=== PATIENT | female | born 1955 | race Caucasian/White ===

== ENCOUNTER 2018-10-05 14:05 | Emergency (ER) | payer OTHER ==
[~2018-10-05] VITALS: Ht 144.8 cm; Wt 75.0 kg
[~2018-10-05 14:05] MED LIST: ACET500C5 PO; CETI10CA PO; HC1C30 TOP; HYDR-4011 PO
[2018-10-05 14:22] VITALS: Ht 144.8 cm; Wt 75.0 kg
[2018-10-05] MEDS ORDERED: SOD CHLORIDE 0.9% 1,000 ML IV STA (15:31)
[2018-10-05] MEDS ORDERED: ONDANSETRON 4 MG INJ IV STA (15:31)
[2018-10-05] MEDS ORDERED: KETOROLAC 15 MG INJ IV STA (15:31)
[2018-10-05] MEDS ORDERED: INSULIN LISPRO 100 UNIT/ML VIAL SC ONE (16:00)
[2018-10-05] MEDS ORDERED: ACCU-CHEK XX ONE (16:00)
--- NOTE | 2018-10-05 16:13 | ERD ---
ER Documentation Chief Complaint Chief Complaint DIAPHORECTIC, ACCUCHECK 353, + WEAKNESS, ONLY TAKES METFORMIN HPI 63-year-old diabetic woman presents with 2 days of generalized weakness and hyperglycemia, she denies fevers or chills, no abdominal pain, no chest pain or shortness of breath, no loss of consciousness. ROS All systems reviewed and are negative except as per history of present illness. Medications Home Meds Active Scripts Ondansetron Hcl* (Zofran*) 4 Mg Tablet, 4 MG PO Q8H PRN for NAUSEA AND/OR VOMITING, #30 TAB Prov:ARNOLD SNOW MD 10/05/18 Reported Medications Glipizide* (Glipizide*) 10 Mg Tablet, 10 MG PO AC BREAKFAST DINNER, TAB 10/05/18 Omeprazole* (Omeprazole*) 20 Mg Capsule.dr, 20 MG PO DAILY, #30 CAP 10/05/18 Metformin Hcl* (Metformin Hcl*) 1,000 Mg Tablet, 1000 MG PO WITH BREAKFAST DINNE, #60 TAB 10/05/18 Benazepril Hcl* (Benazepril Hcl*) 20 Mg Tablet, 20 MG PO DAILY, #30 TAB 10/05/18 Levothyroxine Sodium* (Levothyroxine Sodium*) 50 Mcg Tablet, 50 MCG PO BEFORE BREAKFAST, #30 TAB 10/05/18 Acetaminophen* (Acetaminophen*) 500 MG Extra Strength Tablet, 500 MG PO Q4H PRN for PAIN AND OR ELEVATED TEMP, TAB 10/05/18 Discontinued Scripts Hydrocodone/Acetaminophen ([place] 5-325 Tablet) 1 Each Tablet, 1 TAB PO Q6H PRN for PAIN, #10 TAB Prov:RANJITH JOHNSON PA-C 05/21/18 Hydrocortisone* Topical (Hydrocortisone* Topical) 1%-28.35 Gm Cream..g., 1 APPLIC TOP Q6 PRN for ITCHING, #1 TUB Prov:SATISH SILVERMAN PA-C 03/05/16 Cetirizine Hcl* (Zyrtec*) 10 Mg Capsule, 10 MG PO DAILY, #10 TAB.CHEW Prov:SATISH SILVERMAN PA-C 03/05/16 Acetaminophen* (Tylophen*) 500 Mg Capsule, 1 CAP PO Q6H PRN for PAIN AND OR ELEVATED TEMP, #20 CAP Prov:SATISH SILVERMAN PA-C 03/05/16 Allergies Allergies: Coded Allergies: Penicillins (Verified Allergy, Unknown, 10/05/18) PMhx/Soc Hypothyroidism, obesity, diabetes mellitus, gastritis History of Surgery: Yes (hernia, tubal ligation) Anesthesia Reaction: No Hx Neurological Disorder: No Hx Respiratory Disorders: No Hx Cardiac Disorders: Yes (hypertension) Hx Psychiatric Problems: No Hx Miscellaneous Medical Probl: No Hx Alcohol Use: No Hx Substance Use: No Hx Tobacco Use: No Smoking Status: Never smoker Physical Exam Vitals Vital Signs Date Temp Pulse Resp B/P (MAP) Pulse Ox O2 O2 Flow FiO2 Time Delivery Rate 10/05/18 99.0 74 19 129/59 94 Room Air 19:04 (82) 10/05/18 80 19 95/68 (77) 94 Room Air 18:15 10/05/18 99.0 99 20 172/84 97 14:22 (113) Physical Exam GENERAL: Well-developed, well-nourished, well-hydrated, in no apparent distress, looks nontoxic in appearance HEENT: Moist mucous membranes, pink conjunctiva, no cervical spine tenderness or step-off deformities, no goiter, no jaundice or icterus, extraocular movements intact without pain. No submandibular induration, and no pharyngeal erythema NEURO: Alert and oriented 3, cranial nerves II through XII intact bilaterally, pupils equal round reactive to light, no focal deficits or facial asymmetry, sensation intact distally Strength 5/5 in upper and lower extremities bilaterally CARDIAC: Regular rate and rhythm, no murmurs rubs or gallops LUNGS: Clear bilaterally no wheezing crackles or stridor ABDOMEN: Soft nontender, no guarding, no rigidity, no rebound, no psoas sign no obturator sign. Normoactive bowel sounds SKIN: Warm and dry to touch, no abrasions, contusions, or hematomas, no lacerations, no ecchymosis, no target lesions, and without ulcers EXTREMITIES: No clubbing cyanosis or edema, calves are bilaterally symmetrical, no Homans sign, no popliteal cord sign. Distal pulses equal and bilateral PSYCH: Normal affect without agitation or irritability Result Diagram: 10/05/18 1542 10/05/18 1542 Results 24 hrs Laboratory Tests Test 10/05/18 14:21 10/05/18 15:42 10/05/18 15:54 10/05/18 18:07 Bedside Glucose 353 mg/dL 314 mg/dL White Blood Count 15.1 10^3/ul Red Blood Count 5.22 10^6/ul Hemoglobin 13.0 g/dl Hematocrit 40.8 % Mean Corpuscular 78.2 fl Volume Mean Corpuscular 24.9 pg Hemoglobin Mean Corpuscular 31.9 g/dl Hemoglobin Concen t Red Cell 16.3 % Distribution Width Platelet Count 397 10^3/UL Mean Platelet 9.7 fl Volume Immature 1.100 % Granulocytes % Neutrophils % % Segmented 46 % Neutrophils % (Manual) Lymphocytes % % Lymphocytes % 26 % (Manual) Reactive 17 % Lymphocytes % (Manual) Monocytes % % Monocytes % 9 % (Manual) Eosinophils % % Eosinophils % 2 % (Manual) Basophils % % Nucleated Red 0.0 /100WBC Blood Cells % Immature 0.170 10^3/ul Granulocytes # Neutrophils # 10^3/ul Lymphocytes 3.9 10^3/ul (Manual) Lymphocytes # 10^3/ul Reactive 2.5 10^3/ul Lymphocytes # Monocytes # 10^3/ul Monocytes # 1.3 10^3/ul (Manual) Eosinophils # 10^3/ul Basophils # 10^3/ul Nucleated Red 10^3/ul Blood Cells # Platelet Estimate NORMAL Anisocytosis 1+ Microcytosis 1+ Sodium Level 131 mmol/L Potassium Level 5.3 mmol/L Chloride Level 96 mmol/L Carbon Dioxide 24 mmol/L Level Anion Gap 11 Blood Urea 15 mg/dl Nitrogen Creatinine 0.65 mg/dl Est Glomerular > 60 mL/min Filtrat Rate mL/min Glucose Level 370 mg/dl Calcium Level 10.0 mg/dl Total Bilirubin 0.3 mg/dl Direct Bilirubin 0.00 mg/dl Indirect 0.3 mg/dl Bilirubin Aspartate Amino 22 IU/L Transf (AST/SGOT) Alanine 21 IU/L Aminotransferase (ALT/SGPT) Alkaline 140 IU/L Phosphatase Troponin I < 0.012 ng/ml Total Protein 6.9 g/dl Albumin 4.2 g/dl Globulin 2.70 g/dl Albumin/Globulin 1.55 Ratio Lipase 89 U/L Urine Color YELLOW Urine Clarity CLEAR Urine pH 6.0 Urine Specific 1.021 [place] Urine Ketones NEGATIVE mg/dL Urine Nitrite NEGATIVE mg/dL Urine Bilirubin NEGATIVE mg/dL Urine NEGATIVE mg/dL Urobilinogen Urine Leukocyte NEGATIVE Reinier/ul Esterase Urine Hemoglobin NEGATIVE mg/dL Urine Glucose 3+ mg/dL Urine Total NEGATIVE mg/dl Protein Test 10/05/18 18:58 Bedside Glucose 107 mg/dL Current Medications Medications Dose Sig/Minal Start Time Status Last (Trade) Ordered Route PRN Stop Time Admin Dose Reason Admin Sodium 1,000 ml @ Q1H STAT 10/05/18 DC 10/05/18 Chloride 1,000 mls/hr IV 15:31 15:59 10/05/18 16:30 Ondansetron 4 mg ONCE STAT 10/05/18 DC 10/05/18 HCl (Zofran IV 15:31 15:59 Inj) 10/05/18 15:33 Ketorolac 15 mg ONCE STAT 10/05/18 DC 10/05/18 Tromethamine IV 15:31 16:00 (Toradol) 10/05/18 15:33 Insulin 10 unit ONCE ONCE 10/05/18 DC 10/05/18 Human SC 16:00 16:01 Lispro 10/05/18 16:01 (Humalog) Diagnostic 1 ea 2 HRS AFTER 10/05/18 DC 10/05/18 Test (Pha) HUMALOG ONCE 16:00 16:32 (Accu-Chek) XX 10/05/18 16:01 Procedures/MDM IV line was established patient was placed on environmental monitoring specialist rhythm strip revealed a sinus rhythm at about 80 bpm with upright P and T waves. Patient was afebrile EKG performed, read by me revealed a normal sinus rhythm 84 bpm, normal axis, right bundle branch block QRS duration 122 ms, no concerning ST elevations or depressions noted Patient was hyperglycemic I administered 1 L normal saline IV and lispro insulin 10 units subcutaneous injection. Patient also received Toradol 15 mg IV and Zofran 4 mg IV Blood sugar fell, electrolytes revealed mild leukocytosis of 15, electrolytes reveal mild dehydration and mild hyperkalemia 5.3, urinalysis negative for infection, liver function test normal. Patient has no signs or symptoms of DKA. Differential diagnoses considered, included but not limited to acute coronary syndrome, pulmonary embolism, aortic dissection, abdominal aortic aneurysm, sepsis, stroke, meningitis, encephalitis, pneumonia, appendicitis, cholecystitis, bowel obstruction, pyelonephritis, nephrolithiasis, cystitis, as well as metabolic, hematologic, and electrolyte abnormalities. As well as abscess, cellulitis, fractures, and dislocations. Patient feels much better at this time, and vital signs are normal, symptoms have improved. I did give strict instructions to return to the ED if symptoms continue or worsen, patient will otherwise follow-up with primary care physician. Patient understood instructions and agreed to plan. Disclaimer: Inadvertent spelling and grammatical errors are likely due to EHR/dictation software use and do not reflect on the overall quality of patient care. Also, please note that the electronic time recorded on this note does not necessarily reflect the actual time of the patient encounter. Departure Diagnosis: Primary Impression: Acute weakness Additional Impressions: Acute hyperglycemia Dehydration HTN (hypertension) Hypertension type: essential hypertension Qualified Codes: I10 - Essential (primary) hypertension Condition: Good ARNOLD SNOW MD Oct 05, 2018 16:13
[2018-10-05] MEDS ORDERED: BENA20TA4 PO (16:32)
[2018-10-05] MEDS ORDERED: ACET-141 PO (16:32)
[2018-10-05] MEDS ORDERED: LEVO50TA7 PO (16:32)
[2018-10-05] MEDS ORDERED: METF100010 PO (16:33)
[2018-10-05] MEDS ORDERED: GLIP10TA14 PO (16:33)
[2018-10-05] MEDS ORDERED: OMEP20CA16 PO (16:33)
[2018-10-05] MEDS ORDERED: ONDA4TAB8 PO (18:28)
[2018-10-05 19:04] VITALS: BP 129/59; PULSE 74; RESP 19
== END 2018-10-05 19:06 | disposition home or self-care (01) ==
LOC: E/R 14:05
DX: E11.65 Type 2 diabetes mellitus with hyperglycemia (principal); E86.0 Dehydration; I10 Essential (primary) hypertension; E03.9 Hypothyroidism, unspecified; E66.9 Obesity, unspecified; Z68.35 Body mass index [BMI] 35.0-35.9, adult; Z79.84 Long term (current) use of oral hypoglycemic drugs
CPT/HCPCS: 71045; 80053; 81003; 82962; 83690; 84484; 85025; 87086; 93005; 96372; 96374; 96375; J1815; J1885; J2405; J7030; Z7502

== ENCOUNTER 2018-10-08 13:52 | Emergency (ER) | payer OTHER ==
[~2018-10-08] VITALS: Ht 154.9 cm; Wt 75.9 kg
[~2018-10-08 13:52] MED LIST changes: +ACET-141 PO; -ACET500C5 PO; +BENA20TA4 PO; -CETI10CA PO; +GLIP10TA14 PO; -HC1C30 TOP; -HYDR-4011 PO; +LEVO50TA7 PO; +METF100010 PO; +OMEP20CA16 PO; +ONDA4TAB8 PO
[2018-10-08 14:04] VITALS: BP 172/72; PULSE 98; RESP 24; Ht 154.9 cm; Wt 75.9 kg
[2018-10-08] MEDS ORDERED: ACETAMINOPHEN 500 MG TAB PO STA (14:39)
[2018-10-08] MEDS ORDERED: ACET500C5 PO (16:46)
--- NOTE | 2018-10-08 22:10 | ERD ---
ER Documentation Chief Complaint Chief Complaint left elbow, bacl and head pain due to fall ; no ko HPI Patient is a 63-year-old female with past medical history of hypertension, DM type II, presents to the ER with her niece for concerns of left elbow pain, back pain and posterior head pain after a fall injury prior to arrival. Patient states she was attempting to sit down in her seated walker when it flipped and she fell backwards. Patient also landed on her bilateral elbows. Patient states she did hit the posterior aspect of her head on the floor. Patient has a brasions on her bilateral elbows. Patient denies any loss of consciousness, vomiting, excessive sleepiness. Patient also reports lower back pain. She denies any saddle anesthesia, urinary incontinence, stool incontinence or hematuria. Patient denies any chest pain or shortness of breath. Patient denies any dizziness or lightheadedness prior to fall injury. Patient states she only fell because the walker fell below her. ROS All systems reviewed and are negative except as per history of present illness. Medications Home Meds Active Scripts Acetaminophen* (Tylophen*) 500 Mg Capsule, 1 CAP PO Q6H PRN for PAIN AND OR ELEVATED TEMP, #20 CAP Prov:CARLA LIANG PA-C 10/08/18 Ondansetron Hcl* (Zofran*) 4 Mg Tablet, 4 MG PO Q8H PRN for NAUSEA AND/OR VOMITING, #30 TAB Prov:ARNOLD SNOW MD 10/05/18 Reported Medications Glipizide* (Glipizide*) 10 Mg Tablet, 10 MG PO AC BREAKFAST DINNER, TAB 10/05/18 Omeprazole* (Omeprazole*) 20 Mg Capsule.dr, 20 MG PO DAILY, #30 CAP 10/05/18 Metformin Hcl* (Metformin Hcl*) 1,000 Mg Tablet, 1000 MG PO WITH BREAKFAST DINNE, #60 TAB 10/05/18 Benazepril Hcl* (Benazepril Hcl*) 20 Mg Tablet, 20 MG PO DAILY, #30 TAB 10/05/18 Levothyroxine Sodium* (Levothyroxine Sodium*) 50 Mcg Tablet, 50 MCG PO BEFORE BREAKFAST, #30 TAB 10/05/18 Acetaminophen* (Acetaminophen*) 500 MG Extra Strength Tablet, 500 MG PO Q4H PRN for PAIN AND OR ELEVATED TEMP, TAB 10/05/18 Discontinued Scripts Hydrocodone/Acetaminophen ([place] 5-325 Tablet) 1 Each Tablet, 1 TAB PO Q6H PRN for PAIN, #10 TAB Prov:RANJITH JOHNSON MARIAMA 05/21/18 Hydrocortisone* Topical (Hydrocortisone* Topical) 1%-28.35 Gm Cream..g., 1 APPLIC TOP Q6 PRN for ITCHING, #1 TUB Prov:SATISH SILVERMAN PA-C 03/05/16 Cetirizine Hcl* (Zyrtec*) 10 Mg Capsule, 10 MG PO DAILY, #10 TAB.CHEW Prov:SATISH SILVERMAN PA-C 03/05/16 Acetaminophen* (Tylophen*) 500 Mg Capsule, 1 CAP PO Q6H PRN for PAIN AND OR ELEVATED TEMP, #20 CAP Prov:SATISH SILVERMAN PA-C 03/05/16 Allergies Allergies: Coded Allergies: Penicillins (Verified Allergy, Unknown, 10/05/18) PMhx/Soc History of Surgery: Yes (hernia, tubal ligation) Anesthesia Reaction: No Hx Neurological Disorder: No Hx Respiratory Disorders: No Hx Cardiac Disorders: Yes (hypertension) Hx Psychiatric Problems: No Hx Miscellaneous Medical Probl: No Hx Alcohol Use: No Hx Substance Use: No Hx Tobacco Use: No Smoking Status: Never smoker FmHx Family History: No diabetes Physical Exam Vitals Vital Signs Date Temp Pulse Resp B/P (MAP) Pulse Ox O2 O2 Flow FiO2 Time Delivery Rate 10/08/18 97.9 98 24 172/72 95 14:04 (105) Physical Exam GENERAL: Well-developed, well-nourished female. Appears in no acute distress. HEAD: Normocephalic. No deformities or ecchymosis. Mild swelling noted to the posterior occipital scalp. EYE: Pupils equal, round, and reactive to light. EOMs intact. No conjunctival erythema. No eye discharge. No periorbital ecchymosis noted bilaterally. ENT: External ear without any masses or tenderness. Auditory canals clear bilaterally. TM visualized bilaterally, non-erythematous, non-bulging. No hemotympanum noted bilaterally. No mastoid ecchymosis or swelling noted bilaterally. Nasal mucosa pink with no discharge. Oropharynx is pink without any tonsillar erythema or exudates. No uvula deviation. No kissing tonsils. NECK: Supple. No meningismus. Normal ROM of the neck. No cervical midline tenderness. LUNG: Clear to auscultation bilaterally. No rhonchi, wheezing, rales or coarse breath sounds. HEART: Regular rate and rhythm. No murmurs, rubs or gallops. ABDOMEN: Soft, nontender, and nondistended. Positive bowel sounds in all four quadrants. No rebound tenderness, no guarding. (-) McBurney's point tenderness. No CVA tenderness. BACK: No midline tenderness. Tender to palpation of bilateral paraspinal muscles. EXTREMITIES: Equal pulses bilaterally. No peripheral clubbing, cyanosis or edema. No unilateral leg swelling. Decreased range of motion of bilateral elbow secondary to pain however patient is able to extend and flex at both elbows. Normal pulses bilaterally. NEUROLOGIC: Alert and oriented to person, place and time. Moving all four extremities. 5/5 strength in all extremities. Normal speech. Steady gait. SKIN: Superficial abrasions noted to bilateral elbows. Results 24 hrs Current Medications Medications Dose Sig/Minal Start Time Status Last (Trade) Ordered Route PRN Stop Time Admin Dose Reason Admin 500 mg ONCE STAT 10/08/18 DC 10/08/18 Acetaminophen PO 14:39 14:47 (Tylenol 10/08/18 14:41 Tab) Procedures/MDM MEDICAL DECISION MAKING: Patient is a 63-year-old female who presents the ER for concerns of posterior head pain, neck pain, lower back pain and bilateral elbow pain after fall injury prior to arrival. Patient was attempting to sit down in her walker when her walker fell backwards and patient landed on her bilateral elbows. Patient does report hitting her head. Patient denies any loss of consciousness. Vital signs were reviewed. Patient is afebrile. Patient was not hypoxic. Patient was hemodynamically stable. CT imaging of the brain was obtained and was negative for acute intracranial hemorrhage or acute territorial infarct. Age-related atrophy and minimal vessel ischemic changes were noted. Mild posterior scalp swelling was noted. CT cervical spine showed neck no acute fracture or dislocation. Numerous chronic changes were noted. See formal report. Bilateral elbow series were negative for fracture dislocation. Lumbar spine was negative for acute fracture dislocation. Osteopenia was noted. Degenerative disc changes were noted. See formal report.. At this time, patient's presentation is most consistent with posterior head pain, scalp hematoma, bilateral elbow pain, bilateral elbow abrasions and back pain after fall injury. Low suspicion for intracranial hemorrhage, skull fracture, cervical spine injury, cervical spine fracture, cervical spine dislocation, cauda equina syndrome, spinal fracture, elbow fracture or dislocation. PRESCRIPTION: Tylenol DISCHARGE: At this time, patient is stable for discharge and outpatient management. I have instructed the patient to follow-up with his/her primary care physician in 1-2 days. I have discussed with the patient the possibility of needing to see a specialist for further workup and imaging studies if symptoms persist. I have instructed the patient to promptly return to the ER for any new or worsening symptoms including increased pain, fever, nausea, vomiting, weakness or LOC. The patient and/or family expressed understanding of and agreement with this plan. All questions were answered. Home care instructions were provided. Patients blood pressure was elevated (>120/80) but appears stable without evidence of hypertensive emergency, hypertensive urgency or end-organ failure. I had discussion with the patient about the risks of hypertension. I have advised the patient to follow up with his/her primary care physician for outpatient monitoring and treatment for hypertension in 2-3 days. I have instructed the patient to return to the ER for any new or worsening symptoms including chest pain, shortness of breath, headache, blurred vision, confusion, nausea, vomiting or LOC. Disclaimer: Inadvertent spelling and grammatical errors are likely due to EHR/dictation software use and do not reflect on the overall quality of patient care. Also, please note that the electronic time recorded on this note does not necessarily reflect the actual time of the patient encounter. Departure Diagnosis: Primary Impression: Fall with no significant injury Encounter type: initial encounter Qualified Codes: W19.XXXA - Unspecified fall, initial encounter Additional Impressions: Headache Headache type: unspecified Headache chronicity pattern: unspecified pattern Intractability: not intractable Qualified Codes: R51 - Headache Contusion, elbow Encounter type: initial encounter Laterality: unspecified laterality Qualified Codes: S50.00XA - Contusion of unspecified elbow, initial encounter Scalp hematoma Encounter type: initial encounter Qualified Codes: S00.03XA - Contusion of scalp, initial encounter Condition: Fair Patient Instructions: Self-Care for Headaches, Contusion, Elbow Referrals: COMMUNITY CLINICS YOU HAVE RECEIVED A MEDICAL SCREENING EXAM AND THE RESULTS INDICATE THAT YOU DO NOT HAVE A CONDITION THAT REQUIRES URGENT TREATMENT IN THE EMERGENCY DEPARTMENT. FURTHER EVALUATION AND TREATMENT OF YOUR CONDITION CAN WAIT UNTIL YOU ARE SEEN IN YOUR DOCTORS OFFICE WITHIN THE NEXT 1-2 DAYS. IT IS YOUR RESPONSIBILITY TO MAKE AN APPOINTMENT FOR FOLOW-UP CARE. IF YOU HAVE A PRIMARY DOCTOR --you should call your primary doctor and schedule an appointment IF YOU DO NOT HAVE A PRIMARY DOCTOR YOU CAN CALL OUR PHYSICIAN REFERRAL HOTLINE AT IF YOU CAN NOT AFFORD TO SEE A PHYSICIAN YOU CAN CHOSE FROM THE FOLLOWING [facility] [address] [facility] [address] [facility] [address] [facility] [address] [facility] [address] [facility]. [facility] [address] [facility]. [facility] YOU HAVE RECEIVED A MEDICAL SCREENING EXAM AND THE RESULTS INDICATE THAT YOU DO NOT HAVE A CONDITION THAT REQUIRES URGENT TREATMENT IN THE EMERGENCY DEPARTMENT. FURTHER EVALUATION AND TREATMENT OF YOUR CONDITION CAN WAIT UNTIL YOU ARE SEEN IN YOUR DOCTORS OFFICE WITHIN THE NEXT 1-2 DAYS. IT IS YOUR RESPONSIBILITY TO MAKE AN APPOINTMENT FOR FOLOW-UP CARE. IF YOU HAVE A PRIMARY DOCTOR --you should call your primary doctor and schedule and appointment IF YOU DO NOT HAVE A PRIMARY DOCTOR YOU CAN CALL OUR PHYSICIAN REFERRAL HOTLINE AT . IF YOU CAN NOT AFFORD TO SEE A PHYSICIAN YOU CAN CHOSE FROM THE FOLLOWING [facility]: [facility] [address] [place] [address] [facility] [address] [place] [address] [facility] [address] [place] [address] Additional Instructions: Call your primary care doctor TOMORROW for an appointment during the next 1-2 days.See the doctor sooner or return here if your condition worsens before your appointment time. CARLA LIANG PA-C Oct 08, 2018 22:10
== END 2018-10-08 17:01 | disposition home or self-care (01) ==
LOC: FTE 13:52
DX: S00.03XA Contusion of scalp, initial encounter (principal); S50.02XA Contusion of left elbow, initial encounter; I10 Essential (primary) hypertension; W01.198A Fall on same level from slipping, tripping and stumbling with subsequent striking against other object, initial encounter; Y92.9 Unspecified place or not applicable
CPT/HCPCS: 70450; 72100; 72125; 73080; Z7610